=== PATIENT | female | born 1995 | race Caucasian/White ===

== ENCOUNTER → 2024-03-08 | Outpatient (CLI) | payer OTHER ==
[2024-03-08 14:51] LABS: HEMATOCRIT 36.2 % (36.0-47.0); HEMOGLOBIN 12.3 g/dl (12.0-15.5); MEAN CORPUSCULAR VOLUME 91.2 fl (80.0-96.0); PLATELET COUNT, AUTOMATED 229 10^3/uL (150-450); RED BLOOD COUNT 3.97 10^6/uL (4.00-5.40); WHITE BLOOD COUNT 10.6 10^3/uL (4.0-10.0)
[2024-03-08 15:20] LABS: GLUCOSE CHALLENGE TEST 1 HOUR 95 MG/DL (LESS THAN 140)
[2024-03-08 15:35] LABS: GC DNA AMPLIFICATION NEGATIVE (NEGATIVE)
[2024-03-08 15:44] LABS: HIV 1&2 SCREEN NEGATIVE (NEGATIVE)
[2024-03-08 15:52] LABS: HEPATITIS C VIRUS ABY INDEX 0.04 INDEX (<0.8)
== END ==
LOC: M PLALAB 10:02
PROVIDERS: ATTEND Obstetrics & Gynecology
DX: Z34.02 Encounter for supervision of normal first pregnancy, second trimester (principal)

== ENCOUNTER → 2024-04-19 | Outpatient (CLI) | payer OTHER ==
[2024-04-19 13:50] LABS: HEMATOCRIT 35.9 % (36.0-47.0); HEMOGLOBIN 12.1 g/dl (12.0-15.5); MEAN CORPUSCULAR HEMOGLOBIN 30.6 pg (27.0-33.0); MEAN CORPUSCULAR HGB CONC 33.7 g/dl (32.0-36.5); MEAN CORPUSCULAR VOLUME 90.7 fl (80.0-96.0); PLATELET COUNT, AUTOMATED 225 10^3/uL (150-450); RED BLOOD COUNT 3.96 10^6/uL (4.00-5.40); WHITE BLOOD COUNT 10.7 10^3/uL (4.0-10.0)
[2024-04-19 14:23] LABS: GLUCOSE CHALLENGE TEST 1 HOUR 99 MG/DL (LESS THAN 140)
[2024-04-19 14:53] LABS: HIV 1&2 SCREEN NEGATIVE (NEGATIVE)
[2024-04-19 15:01] LABS: HEPATITIS C VIRUS ABY INDEX 0.03 INDEX (<0.8)
[2024-04-19 15:21] LABS: GC DNA AMPLIFICATION NEGATIVE (NEGATIVE)
== END ==
LOC: M PLALAB 10:36
PROVIDERS: ATTEND Advanced Practice Midwife
DX: Z34.03 Encounter for supervision of normal first pregnancy, third trimester (principal)

== ENCOUNTER → 2024-04-26 | Outpatient (CLI) | payer OTHER | LOC: M WHC 14:20 | PROVIDERS: ATTEND Obstetrics & Gynecology | DX: Z34.02 Encounter for supervision of normal first pregnancy, second trimester (principal) ==

== ENCOUNTER → 2024-05-24 | Outpatient (CLI) | payer OTHER ==
[2024-05-24 12:32] LABS: HEMATOCRIT 36.5 % (36.0-47.0); HEMOGLOBIN 12.4 g/dl (12.0-15.5); MEAN CORPUSCULAR VOLUME 91.3 fl (80.0-96.0); PLATELET COUNT, AUTOMATED 216 10^3/uL (150-450); URIC ACID 5.5 MG/DL (3.1-7.8); WHITE BLOOD COUNT 10.4 10^3/uL (4.0-10.0)
[2024-05-24 12:34] LABS: LDH LACTATE DEHYDROGENASE 149 U/L (120-246)
[2024-05-24 12:36] LABS: ALT/SGPT 11 U/L (7.0-40); AST/SGOT 10 U/L (<34); BILIRUBIN,TOTAL 0.3 MG/DL (0.3-1.2); CREATININE FOR GFR 0.55 MG/DL (0.55-1.30); GLOMERULAR FILTRATION RATE > 60.0 (>60)
[2024-05-24 12:52] LABS: TOTAL PROTEIN,RANDOM URINE 21.4 MG/DL (0.0-14.0)
[2024-05-24 12:58] LABS: CREATININE,RANDOM URINE 131.1 MG/DL
== END ==
LOC: M PLALAB 09:15
PROVIDERS: ATTEND Nurse Practitioner Family
DX: R03.0 Elevated blood-pressure reading, without diagnosis of hypertension (principal)

== ENCOUNTER 2024-06-07 14:58 | Outpatient (CLI) | payer OTHER ==
[~2024-06-07] VITALS: Ht 154.9 cm; Wt 102.6 kg
[2024-06-07 15:14] VITALS: BP 145/79
[2024-06-07] MEDS ORDERED: PRENTAB9 PO (15:20)
[2024-06-07] MEDS ORDERED: THERTAB52 PO (15:20)
[2024-06-07] MEDS ORDERED: NOXI1TAB PO (15:20)
[2024-06-07] MEDS ORDERED: ASPI81CH33 PO (15:20)
[2024-06-07] MEDS ORDERED: OMEG10002 PO (15:20)
[2024-06-07 15:56] LABS: HEMATOCRIT 34.6 % (36.0-47.0); HEMOGLOBIN 11.8 g/dl (12.0-15.5); MEAN CORPUSCULAR HEMOGLOBIN 30.7 pg (27.0-33.0); MEAN CORPUSCULAR HGB CONC 34.1 g/dl (32.0-36.5); MEAN CORPUSCULAR VOLUME 90.1 fl (80.0-96.0); PLATELET COUNT, AUTOMATED 226 10^3/uL (150-450); RED BLOOD COUNT 3.84 10^6/uL (4.00-5.40); WHITE BLOOD COUNT 11.1 10^3/uL (4.0-10.0)
[2024-06-07] MEDS: BETAMETHASONE SOLUSPAN 6MG/ML 5ML VIAL IM SCH (16:35)
[2024-06-07 17:16] VITALS: BP 142/85
[2024-06-07 18:00] LABS: TOTAL PROTEIN,RANDOM URINE 21.7 MG/DL (0.0-14.0)
[2024-06-07 18:05] LABS: CREATININE,RANDOM URINE 129.7 MG/DL
[2024-06-07 18:51] VITALS: BP 138/83
[2024-06-07 19:13] LABS: URIC ACID 5.3 MG/DL (3.1-7.8)
[2024-06-07 19:15] LABS: ALT/SGPT 12 U/L (7.0-40); AST/SGOT 10 U/L (<34); BILIRUBIN,TOTAL 0.2 MG/DL (0.3-1.2); CREATININE FOR GFR 0.58 MG/DL (0.55-1.30); GLOMERULAR FILTRATION RATE > 60.0 (>60); LDH LACTATE DEHYDROGENASE 156 U/L (120-246)
== END 2024-06-07 17:03 | disposition home or self-care (01) ==
LOC: M LDO 14:58
PROVIDERS: ATTEND Advanced Practice Midwife
DX: O13.3 Gestational [pregnancy-induced] hypertension without significant proteinuria, third trimester (principal); O99.343 Other mental disorders complicating pregnancy, third trimester; O99.283 Endocrine, nutritional and metabolic diseases complicating pregnancy, third trimester; F41.9 Anxiety disorder, unspecified; F32.A Depression, unspecified; E28.2 Polycystic ovarian syndrome; Z3A.35 35 weeks gestation of pregnancy
CPT/HCPCS: 36415; 59025; 76815; 76816; 76819; 76820; 82247; 82570; 83615; 84156; 84450; 84460; 84550; 85027; 96372; G0463; J0702

== ENCOUNTER → 2024-06-07 | Outpatient (CLI) | payer OTHER ==
[~2024-06-07] MED LIST: ACET-683 PO; ACET-897 PO; ASPI81CH33 PO; IBUP80TA PO; NOXI1TAB PO; OMEG10002 PO; PRENTAB9 PO; THERTAB52 PO
== END ==
LOC: M WHC 08:58
PROVIDERS: ATTEND Nurse Practitioner Family
DX: O13.3 Gestational [pregnancy-induced] hypertension without significant proteinuria, third trimester (principal); Z3A.35 35 weeks gestation of pregnancy

== ENCOUNTER 2024-06-08 16:35 | Outpatient (CLI) | payer OTHER ==
[~2024-06-08] VITALS: Ht 154.9 cm; Wt 103.6 kg
[~2024-06-08 16:35] MED LIST changes: -ACET-683 PO; -ACET-897 PO; -IBUP80TA PO
[2024-06-08] MEDS ORDERED: HOME MED LIST COMPLETE! XX SCH (16:50)
[2024-06-08 16:51] VITALS: BP 134/89
[2024-06-08] MEDS: BETAMETHASONE SOLUSPAN 6MG/ML 5ML VIAL IM ONE (16:58)
== END 2024-06-08 18:20 | disposition home or self-care (01) ==
LOC: M LDO 16:35
PROVIDERS: ATTEND Obstetrics & Gynecology
DX: O13.3 Gestational [pregnancy-induced] hypertension without significant proteinuria, third trimester (principal); Z3A.35 35 weeks gestation of pregnancy
CPT/HCPCS: 59025; 96372; G0463; J0702

== ENCOUNTER 2024-06-12 17:00 | Inpatient (IN) | payer OTHER ==
[~2024-06-12] VITALS: Ht 154.9 cm; Wt 101.6 kg
[2024-06-12] MEDS ORDERED: ACET-897 PO (18:49)
[2024-06-12 18:51] VITALS: BP 139/89
[2024-06-12] MEDS ORDERED: OXYTOCIN DRIP 30 UNITS in IV 1 EA IV PRN (18:55)
[2024-06-12] MEDS ORDERED: LIDOCAINE 1% MDV 20ML VIAL INFIL PRN (18:55)
[2024-06-12] MEDS ORDERED: OXYTOCIN INJ 10UNITS/ML 1ML VIAL IM PRN (18:55)
[2024-06-12] MEDS ORDERED: TRANEXAMIC ACID INJection 1,000 MG in NS 100 ML IV PRN (18:55)
[2024-06-12] MEDS ORDERED: CARBOPROST TROMETHAMINE 250 MCG/ML AMP IM PRN (18:55)
[2024-06-12 19:55] LABS: MEAN CORPUSCULAR HEMOGLOBIN 30.6 pg (27.0-33.0); MEAN CORPUSCULAR HGB CONC 34.4 g/dl (32.0-36.5); MEAN CORPUSCULAR VOLUME 89.1 fl (80.0-96.0); PLATELET COUNT, AUTOMATED 200 10^3/uL (150-450); RED BLOOD COUNT 3.59 10^6/uL (4.00-5.40); WHITE BLOOD COUNT 21.1 10^3/uL (4.0-10.0)
[2024-06-12 20:02] VITALS: BP 132/78
[2024-06-12 20:02] LABS: INR 0.95; PARTIAL THROMBOPLASTIN TIME 26.2 SECONDS (24.8-34.2)
[2024-06-12] MEDS: miSOPROStol 50MCG 1/2 TABLET PO ONE (20:02)
[2024-06-12] MEDS: BUTORPHANOL 2 MG/ML 1ML VIAL IV ONE (20:12)
[2024-06-12] MEDS: PROMETHAZINE 25MG/ML 1ML VIAL IV ONE (20:13)
[2024-06-12 20:20] LABS: URIC ACID 6.4 MG/DL (3.1-7.8)
[2024-06-12 20:22] LABS: LDH LACTATE DEHYDROGENASE 201 U/L (120-246)
[2024-06-12 20:23] LABS: ALT/SGPT 13 U/L (7.0-40); AST/SGOT 16 U/L (<34); BILIRUBIN,TOTAL 0.4 MG/DL (0.3-1.2); CREATININE FOR GFR 0.58 MG/DL (0.55-1.30); GLOMERULAR FILTRATION RATE > 60.0 (>60)
[2024-06-12 20:55] LABS: TOTAL PROTEIN,RANDOM URINE 36.5 MG/DL (0.0-14.0)
[2024-06-12 20:58] LABS: HEPATITIS C VIRUS ABY INDEX < 0.02 INDEX (<0.8)
[2024-06-12 21:00] LABS: CREATININE,RANDOM URINE 128.3 MG/DL
[2024-06-12 22:00] VITALS: BP 145/87
[2024-06-12 23:11] VITALS: BP 134/82
[2024-06-13] VITALS (49 sets, daily range): BP systolic 107–176; BP diastolic 58–108
[2024-06-13] MEDS: miSOPROStol 100MCG TABLET PO ONE (00:14)
[2024-06-13] MEDS ORDERED: ONDANSETRON 4MG 2ML VIAL IV PRN ×2 (01:10→15:25)
[2024-06-13] MEDS ORDERED: ePHEDrine SULFATE 25 MG/5 ML(5MG/ML) SYRINGE IVP PRN (01:10)
[2024-06-13] MEDS ORDERED: NALOXONE INJ 0.4MG/1ML VIAL IV PRN (01:10)
[2024-06-13] MEDS ORDERED: diphenhydrAMINE 50MG/ML VIAL IV PRN (01:10)
[2024-06-13] MEDS ORDERED: EPIDURAL/PCA KEYS XX PRN (01:10)
[2024-06-13] MEDS ORDERED: LR 500 ML IV PRN (01:10)
[2024-06-13] MEDS: FENTANYL/ROPIVACAINE/NACL BAG 100 ML EPIDURAL SCH (01:11)
[2024-06-13] MEDS ORDERED: miSOPROStol 100MCG TABLET PO ONE (04:10)
[2024-06-13] MEDS: miSOPROStol 50MCG 1/2 TABLET PO ONE (04:53)
[2024-06-13] MEDS: LR 1,000 ML IV SCH ×2 (07:32→09:50)
[2024-06-13] MEDS: PRENATAL VITAMINS CHEWABLE TABLET PO SCH (09:00)
[2024-06-13] MEDS: OXYTOCIN DRIP 30 UNITS in IV 1 EA IV SCH ×2 (10:18→15:25)
[2024-06-13] MEDS: ACETAMINOPHEN 500 MG TAB PO PRN (10:19)
[2024-06-13] MEDS ORDERED: DIBUCAINE 1% OINTMENT 30GM TOP PRN (15:25)
[2024-06-13] MEDS ORDERED: IBUPROFEN 600MG TAB PO PRN (15:25)
[2024-06-13] MEDS ORDERED: ACETAMINOPHEN 325 MG TAB PO PRN (15:25)
[2024-06-13] MEDS ORDERED: DOCUSATE SODIUM 100MG CAPSULE PO PRN (15:25)
[2024-06-13] MEDS ORDERED: METHYLERGONOVINE MALEATE 0.2 MG TAB PO PRN (15:25)
[2024-06-13] MEDS ORDERED: MOM 30ML SUSPENSION UDC PO PRN (15:25)
[2024-06-13] MEDS ORDERED: CALCIUM CARBONATE 500 MG CHEW U/D PO PRN (15:25)
[2024-06-13] MEDS ORDERED: RHOGAM 300MCG (1500IU) INJ IM SCH (15:25)
[2024-06-13] MEDS ORDERED: ACETAMINOPHEN 500 MG TAB PO PRN (15:25)
[2024-06-13] MEDS: IBUPROFEN 800 MG TAB PO PRN (16:37)
[2024-06-13] MEDS: diphenhydrAMINE 50MG/ML VIAL IV ONE (20:55)
[2024-06-14 03:01] VITALS: BP 141/95
[2024-06-14 05:28] VITALS: BP 141/104
[2024-06-14 07:06] VITALS: BP 131/86
[2024-06-14 08:12] LABS: CYTOMEGALOVIRUS IgG ANTIBODY <0.60 U/mL (0.00-0.59); RUBELLA IgG FOR TORCH EVAL 1.26 index (Immune >0.99); RUBELLA IgM FOR TORCH EVAL <20.0 AU/mL (0.0-19.9); TOXOPLASMA IgG ABY <3.0 IU/mL (0.0-7.1)
[2024-06-14] MEDS ORDERED: IBUP80TA PO (12:42)
[2024-06-14] MEDS ORDERED: ACET-683 PO (12:42)
[2024-06-15] MEDS ORDERED: MEASLES,MUMPS,RUBELLA VACCINE INJ (MMR-II) SC.IMMUN ONE (09:00)
[2024-06-17 13:57] LABS: CYTOMEGALOVIRUS IgM ANTIBODY < 30.00 AU/mL (<30.00)
[2024-06-17 15:08] LABS: HSV 1 IGG TYPE SPECIFIC 5.63 index (<0.90); HSV 2 IGG TYPE SPECIFIC < 0.90 index (<0.90)
== END 2024-06-14 12:58 | disposition home or self-care (01) | DRG 805 ==
LOC: M LDO 17:00 → M LDI 18:57
PROVIDERS: ADMIT Advanced Practice Midwife; ATTEND Advanced Practice Midwife
PROC: 3E033VJ Introduction of Other Hormone into Peripheral Vein, Percutaneous Approach (ICD-10-PCS; 2024-06-12)
PROC: 10E0XZZ Delivery of Products of Conception, External Approach (ICD-10-PCS; principal; 2024-06-13)
DX: O45.8X3 Other premature separation of placenta, third trimester (principal); Z37.1 Single stillbirth; O60.14X0 Preterm labor third trimester with preterm delivery third trimester, not applicable or unspecified; Z3A.36 36 weeks gestation of pregnancy; D56.9 Thalassemia, unspecified; O99.02 Anemia complicating childbirth; E28.2 Polycystic ovarian syndrome; O99.284 Endocrine, nutritional and metabolic diseases complicating childbirth; O13.4 Gestational [pregnancy-induced] hypertension without significant proteinuria, complicating childbirth

== ENCOUNTER → 2024-12-05 | Outpatient (CLI) | payer OTHER ==
[~2024-12-05] MED LIST changes: +ACET-683 PO; +ACET-897 PO; +IBUP80TA PO
== END ==
LOC: M SLEEP 20:00
PROVIDERS: ATTEND Physician Assistant
DX: G47.33 Obstructive sleep apnea (adult) (pediatric) (principal)